=== PATIENT | male | born 1985 | race African-American/Black ===

== ENCOUNTER 2017-01-09 06:46 | Emergency (ER) | payer OTHER ==
[~2017-01-09] VITALS: Ht 177.8 cm; Wt 81.0 kg
[2017-01-09] MEDS: ONDANSETRON HCL 4MG/2ML VIAL IV STA (07:06)
[2017-01-09] MEDS: SODIUM CHLORIDE 0.9% 1,000 ML IV ONE (07:06)
[2017-01-09] MEDS: FENTANYL CITRATE/PF 50MCG/ML 2ML VIAL IV ONE (07:06)
[2017-01-09] MEDS: MIDAZOLAM HCL 2 MG/2 ML VIAL IV ONE (07:25)
[2017-01-09] MEDS: ETOMIDATE 2MG/ML 10ML VIAL IV ONE (07:56)
[2017-01-09 09:00] VITALS: BP 119/65
== END 2017-01-09 09:53 | disposition home or self-care (01) ==
LOC: ER 06:46
DX: S43.004A Unspecified dislocation of right shoulder joint, initial encounter (principal); W18.39XA Other fall on same level, initial encounter; Y93.89 Activity, other specified; Y92.89 Other specified places as the place of occurrence of the external cause; Y99.8 Other external cause status
CPT/HCPCS: 23650; 73020; 73030; 96374; 96375; 99285; J2250; J2405; J3010; J3490; J7030; Z7610; L3670